=== PATIENT | male | born 1940 | race Native Hawaiian/Other Pacific Islander ===

== ENCOUNTER → 2016-10-16 | Outpatient (CLI) | payer MEDICARE, OTHER | END | disposition home or self-care (01) | LOC: LAB.O 09:31 | PROVIDERS: ATTEND Nurse Practitioner Family | DX: I10 Essential (primary) hypertension (principal) ==

== ENCOUNTER → 2016-11-03 | Outpatient (CLI) | payer MEDICARE, OTHER | END | disposition home or self-care (01) | LOC: LAB 14:08 | PROVIDERS: ATTEND Nurse Practitioner Family | DX: Z12.5 Encounter for screening for malignant neoplasm of prostate (principal) | CPT/HCPCS: 36415; G0103 ==

== ENCOUNTER → 2016-11-24 | Outpatient (CLI) | payer MEDICARE, OTHER | END | disposition home or self-care (01) | LOC: LAB.O 16:45 | PROVIDERS: ATTEND Nurse Practitioner Family | DX: R97.20 Elevated prostate specific antigen [PSA] (principal) ==

== ENCOUNTER → 2016-12-07 | Outpatient (CLI) | payer MEDICARE, OTHER ==
[~2016-12-07] MED LIST: ALBUTEROL SULFATE 2.5 MG/3 ML VIAL NEB ONE
== END ==
LOC: RESP 10:01
PROVIDERS: ATTEND Nurse Practitioner Family
DX: J44.9 Chronic obstructive pulmonary disease, unspecified (principal)
CPT/HCPCS: 94060; J7611

== ENCOUNTER → 2017-03-24 | Outpatient (CLI) | payer MEDICARE, OTHER | LOC: LAB.O 13:58 | PROVIDERS: ATTEND Urology | DX: R97.20 Elevated prostate specific antigen [PSA] (principal) ==

== ENCOUNTER → 2017-09-29 | Outpatient (CLI) | payer OTHER | END | disposition home or self-care (01) | LOC: LAB.O 14:15 | PROVIDERS: ATTEND Urology | DX: R97.20 Elevated prostate specific antigen [PSA] (principal) ==

== ENCOUNTER → 2018-03-30 | Outpatient (CLI) | payer OTHER | LOC: LAB.O 13:43 | PROVIDERS: ATTEND Urology | DX: R97.20 Elevated prostate specific antigen [PSA] (principal) ==

== ENCOUNTER → 2018-08-31 | Outpatient (CLI) | payer OTHER ==
--- NOTE | 2018-08-31 14:32 | RAD ---
2 view chest INDICATION: Chest pain COMPARISON: April 2015 IMPRESSION: Increasing interstitial markings suggesting interstitial fibrosis versus edema less likely. Heart size. Mildly hyperexpanded lungs. No lobar consolidation. No pleural effusion or pneumothorax. Electronically signed by: Gildardo Polanco MD 08/31/2018 2:29 PM DATA ENTRY ASSISTANT
== END ==
LOC: LAB.O 13:57
PROVIDERS: ATTEND Nurse Practitioner Family
DX: R07.89 Other chest pain (principal)

== ENCOUNTER → 2019-01-24 | Outpatient (CLI) | payer OTHER ==
--- NOTE | 2019-01-24 16:32 | RAD ---
EXAM DESCRIPTION: Chest,2 Views CLINICAL HISTORY: COPD COMPARISON: 08/31/2018 TECHNIQUE: PA/lateral FINDINGS/IMPRESSION: The lungs are emphysematous with moderate background interstitial scarring/fibrosis. No focal consolidation, significant pneumothorax or pleural effusion. The heart is normal in size. No acute osseous abnormality. Subtle opacities within the bilateral lower lungs are noted and may represent overlapping costal shadows versus partially calcified pulmonary nodules. Follow-up CT chest is recommended for further evaluation. Electronically signed by: Larry Duran DO 01/24/2019 4:30 PM CDT
== END ==
LOC: LAB.O 10:24
PROVIDERS: ATTEND Nurse Practitioner Family
DX: J44.1 Chronic obstructive pulmonary disease with (acute) exacerbation (principal)

== ENCOUNTER → 2019-06-26 | Outpatient (CLI) | payer OTHER ==
--- NOTE | 2019-06-26 11:39 | RAD ---
EXAM DESCRIPTION: Chest,2 Views CLINICAL HISTORY: CHRONIC OBSTRUCTIVE PULMONARY DISEASE COMPARISON: Previous study January 24, 2019 TECHNIQUE: PA/lateral FINDINGS: Nodular densities in the mid and lower lung zones thought to be nipple shadows plus prominent anterior ends of the ribs. No definite pulmonary nodule or mass is seen on the lateral view to suggest the need for chest CT at this time. Patient had a previous chest CT May 27, 2015 which was negative for pulmonary nodules or masses. Pattern of densities appear similar to the previous chest x-ray January 24, 2019. Heart size is normal with normal pulmonary vascularity. No pleural effusion or pneumothorax. Lungs are hyperexpanded with no consolidating infiltrate. Lateral view shows intact sternum and prominent spurring in the mid to lower T-spine. IMPRESSION: No acute process is identified in the chest. See above. Electronically signed by: Marv Ferris MD 06/26/2019 11:37 AM [facility]
== END ==
LOC: RAD 10:33
PROVIDERS: ATTEND Nurse Practitioner Family
DX: J44.9 Chronic obstructive pulmonary disease, unspecified (principal)